=== PATIENT | male | born 1980 | race Two or more races ===

== ENCOUNTER 2017-06-18 00:35 | Emergency (ER) | payer OTHER ==
[~2017-06-18] VITALS: Ht 167.6 cm; Wt 70.3 kg
--- NOTE | 2017-06-18 00:40 | NUR ---
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 PATIENT ALSO C/O LEFT FOREARM SWELLING AND PAIN X7 DAYS, PT IS ALERT, ORIENTED X 4, NO RESP DISTRESS NOTED OR REPORTED UPON ASSESSMENT...MD AT BEDSIDE...
[2017-06-18] MEDS: IBUPROFEN 800 MG TABLET PO ONE (01:07)
[2017-06-18] MEDS: TDAP DIPH,PERTUSS,TET VAC/PF 0.5 ML DISP.SYRIN IM ONE (01:11)
[2017-06-18] MEDS ORDERED: NEOMY/BACITRA/POLYMYXIN B OINT UD PACKET TP ONE (01:14)
[2017-06-18] MEDS ORDERED: TDAP DIPH,PERTUSS,TET VAC/PF 0.5 ML DISP.SYRIN IM ONE (01:15)
[2017-06-18] MEDS ORDERED: IBUPROFEN 800 MG TABLET ONE (01:15)
[2017-06-18] MEDS: NEOMY/BACITRA/POLYMYXIN B OINT UD PACKET TP ONE (01:19)
--- NOTE | 2017-06-18 01:43 | NUR ---
Patient discharged to home in stable conditon. Written and verbal after care instructions given. Patient verbalizes understanding of instructions. pt walked out of Er unassisted with belongings at side...
[2017-06-18 01:44] VITALS: BP 129/95
== END 2017-06-18 01:46 | disposition home or self-care (01) ==
LOC: ER 00:40
DX: M65.4 Radial styloid tenosynovitis [de Quervain] (principal); S61.212A Laceration without foreign body of right middle finger without damage to nail, initial encounter; K21.9 Gastro-esophageal reflux disease without esophagitis; X50.9XXA Other and unspecified overexertion or strenuous movements or postures, initial encounter; Y93.89 Activity, other specified; Y92.69 Other specified industrial and construction area as the place of occurrence of the external cause; Y99.0 Civilian activity done for income or pay
CPT/HCPCS: 29125; 73110; 73130; 90471; 90715; 99284; A4663